=== PATIENT | male | born 1955 | race Caucasian/White ===

== ENCOUNTER 2019-01-18 05:30 | Inpatient (IN) | payer OTHER ==
[~2019-01-18] VITALS: Ht 177.8 cm; Wt 71.7 kg
[2019-01-18 05:38] VITALS: BP 139/89
[2019-01-18] MEDS ORDERED: NACL 0.9% 500 ML IV ONE (05:42)
[2019-01-18] MEDS ORDERED: KETOROLAC 30 MG/ML VIAL IVP ONE (05:45)
[2019-01-18] MEDS ORDERED: ONDANSETRON 4 MG/2 ML VIAL IVP ONE (05:45)
[2019-01-18] MEDS ORDERED: LEVOFLOXACIN 500 MG/D5W PREMIX 100 ML IV ONE (06:55)
[2019-01-18] MEDS ORDERED: MORPHINE SULFATE 2 MG/ML SYR IVP ONE (06:55)
[2019-01-18 07:03] LABS: BASOPHILS % (AUTO) 0.3 % (0.0-2.0); EOSINOPHILS # (AUTO) 0.1 K/uL (0-0.4); EOSINOPHILS % (AUTO) 0.6 % (0.0-4.0); HEMATOCRIT 44.4 % (36-52); HEMOGLOBIN 15.3 g/dL (12.0-18.0); LYMPHOCYTES # (AUTO) 2.1 K/uL (2.0-11.5); LYMPHOCYTES % (AUTO) 21.9 % (20.5-51.1); MEAN CORPUSCULAR HEMOGLOBIN 31 pg (27-31); MEAN CORPUSCULAR HGB CONC 34 g/dL (33-37); MONOCYTES # (AUTO) 0.9 K/uL (0.8-1.0); MONOCYTES % (AUTO) 8.8 % (1.7-9.3); NEUTROPHILS # (AUTO) 6.6 K/uL (1.8-7.7); NEUTROPHILS % (AUTO) 68.4 % (42.2-75.2); PLATELET COUNT (AUTO) 136 K/uL (140-450); RED BLOOD CELL COUNT(AUTO) 4.88 MIL/uL (4.20-6.10); RED CELL DISTRIBUTION WIDTH 12.5 % (11.6-13.7); WHITE BLOOD COUNT (AUTO) 9.7 K/uL (4.8-10.8)
[2019-01-18 07:19] LABS: ANION GAP 11.9 (8-16); CARBON DIOXIDE 28.3 mmol/L (21-32); CREATININE 1.3 mg/dL (0.7-1.3); POTASSIUM 4.2 mmol/L (3.5-5.1)
[2019-01-18 07:25] LABS: ALBUMIN 3.8 g/dL (3.4-5.0); TOTAL BILIRUBIN 1.7 mg/dL (0.0-1.0)
[2019-01-18] MEDS ORDERED: diphenhydrAMINE 50 MG/ML VIAL IVP PRN (07:45)
[2019-01-18] MEDS ORDERED: POTASSIUM CHLORIDE 10 MEQ TABER PO PRN (07:45)
[2019-01-18] MEDS ORDERED: guaiFENesin DM 200/20 MG-10 ML 10 ML UDC PO PRN (07:45)
[2019-01-18] MEDS ORDERED: NACL 0.9% 1,000 ML IV SCH (07:45)
[2019-01-18] MEDS ORDERED: MAG SULF 2000 MG/WATER PREMIX 50 ML IV PRN (07:45)
[2019-01-18] MEDS ORDERED: SODIUM PHOSPHATE 118 ML ENEM RC PRN (07:45)
[2019-01-18] MEDS ORDERED: cloNIDine 0.1 MG TAB PO PRN (07:45)
[2019-01-18] MEDS ORDERED: ONDANSETRON 4 MG/2 ML VIAL IVP PRN (07:45)
[2019-01-18] MEDS ORDERED: IPRATROPIUM 0.02% 0.5 MG/2.5 ML NEBU INH PRN (07:45)
[2019-01-18] MEDS ORDERED: MORPHINE SULFATE 2 MG/ML SYR IVP PRN (07:45)
[2019-01-18] MEDS ORDERED: DOCUSATE SODIUM 250 MG GELCAP PO PRN (07:45)
[2019-01-18] MEDS ORDERED: ACETAMINOPHEN 325 MG TAB PO PRN (07:45)
[2019-01-18] MEDS ORDERED: BISACODYL 10 MG SUPP RC PRN (07:45)
[2019-01-18] MEDS ORDERED: ALBUTEROL 0.083% 2.5 MG/3 ML NEBU INH PRN (07:45)
[2019-01-18] MEDS ORDERED: HYDROcodone/APAP 5/325 MG 1 TAB TAB PO PRN ×2 (07:45)
[2019-01-18] MEDS ORDERED: ZOLPIDEM 5 MG TAB PO PRN (07:45)
[2019-01-18] MEDS ORDERED: ACETAMINOPHEN 650 MG SUPP RC PRN (07:45)
[2019-01-18] MEDS ORDERED: LORazepam 2 MG/ML VIAL IVP PRN (07:45)
[2019-01-18] MEDS ORDERED: POTASSIUM CHLORIDE 40 MEQ, LIDOCAINE 1% 25 MG in NACL 0.9% 250 ML IV PRN (07:45)
[2019-01-18] MEDS ORDERED: MAGNESIUM OXIDE 400 MG TAB PO PRN (07:45)
[2019-01-18] MEDS ORDERED: ALUMINUM HYD/MAG/SIMETHICONE 30 ML UDC PO PRN (07:45)
[2019-01-18 08:00] VITALS: BP 139/57
[2019-01-18] MEDS ORDERED: TAMSULOSIN 0.4 MG CAP PO SCH ×2 (09:00→09:22)
[2019-01-18 13:53] LABS: APPEARANCE,URINE CLEAR (CLEAR); BILIRUBIN,URINE NEGATIVE (NEGATIVE); BLOOD, URINE 1+ (NEGATIVE); COLOR,URINE YELLOW (YELLOW); LEUKOCYTE ESTERASE ,URINE NEGATIVE (NEGATIVE); NITRITE, URINE NEGATIVE (NEGATIVE); PH,URINE 7.5 (5.0-9.0); UGLUCOSE NEGATIVE (NEGATIVE)
[2019-01-18] MEDS ORDERED: TAMS0.4C96 PO (14:25)
[2019-01-18] MEDS ORDERED: TRAM50TA1 PO (14:25)
== END 2019-01-18 15:51 | disposition home or self-care (01) | DRG 465 ==
LOC: MED 05:30 → MTU 07:11
PROVIDERS: ADMIT Internal Medicine Pulmonary Disease; ATTEND Internal Medicine Pulmonary Disease
DX: N13.2 Hydronephrosis with renal and ureteral calculous obstruction (principal); Z79.899 Other long term (current) drug therapy
CPT/HCPCS: 36415; 80053; 81001; 83605; 85025; 87040; 87081; 87086; 96374; 96375; 99285; J1885; J1956; J2270; J2405